=== PATIENT | male | born 1975 | race Caucasian/White ===

== ENCOUNTER 2023-04-28 18:10 | Emergency (ER) | payer BC ==
[~2023-04-28] VITALS: Ht 172.7 cm; Wt 70.0 kg
[2023-04-28 18:28] VITALS: O2SAT 98
[2023-04-28 20:54] LABS: PROTHROMBIN TIME 10.3 sec (9.6-11.0)
[2023-04-28 21:02] LABS: EOSINOPHILS % 4.8 % (0.0-5.0); HEMOGLOBIN. 16.3 g/dL (14.0-18.0); LYMPHOCYTES % 14.9 % (20.0-50.0); MEAN CORPUSCULAR HEMOGLOBIN 29.3 pg (28.0-32.0); MEAN PLATELET VOLUME 7.7 fl (7.4-10.4); MONOCYTES % 6.9 % (2.0-8.0); NEUTROPHILS % 72.4 % (40.0-76.0); PLATELET 277 x1000/uL (130-400); RED BLOOD CELL COUNT 5.59 mill/uL (4.7-6.1); RED CELL DISTRIBUTION WIDTH 15.7 % (11.6-14.6); WHITE BLOOD COUNT 9.4 x1000/uL (4.5-11.0)
[2023-04-28 21:21] LABS: ALANINE AMINOTRANSFERASE 23 IU/L (10-49); ALBUMIN 4.6 g/dL (3.2-4.8); ASPARTATE AMINOTRANSFERASE 33 IU/L (<34); BILIRUBIN TOTAL 0.5 mg/dL (0.1-1.0); CALCIUM 9.9 mg/dL (8.7-10.4); CARBON DIOXIDE 32 mEq/L (21-32); CHLORIDE 99 mEq/L (98-107); CREATININE 1.2 mg/dL (0.6-1.3); GLUCOSE 95 mg/dL (70-105); POTASSIUM 4.1 mEq/L (3.5-5.1); PROTEIN TOTAL 7.6 g/dL (6.0-8.3); SODIUM 136 mEq/L (136-145); UREA NITROGEN BLOOD 11 mg/dL (9-23)
[2023-04-29] MEDS ORDERED: P20 PO (02:13)
[2023-04-29 02:17] VITALS: BP 133/81; PULSE 80; RESP 17; TEMP 98.4
[2023-04-29] MEDS ORDERED: IOHEXOL-350 100 ML BOTTLE ONE (04:30)
[2023-04-29] MEDS ORDERED: IOHEXOL-300 100 ML BOTTLE ONE (04:30)
== END 2023-04-29 03:44 | disposition home or self-care (01) ==
LOC: ER 18:10
DX: M54.2 Cervicalgia (principal); I10 Essential (primary) hypertension; Z88.8 Allergy status to other drugs, medicaments and biological substances; Z98.890 Other specified postprocedural states
CPT/HCPCS: 99285; 70496; 80053; 85025; 85610; 36415; 70498; 71260; Q9967 ×2